=== PATIENT | male | born 1995 | race Asian ===

== ENCOUNTER 2017-02-21 02:50 | Emergency (ER) | payer BC ==
[2017-02-21 02:59] VITALS: TEMP 36.3; O2SAT 100; Ht 175.3 cm
[2017-02-21 03:55] LABS: BLOOD UREA NITROGEN 13 mg/dl (7-18); BUN/CREATININE RATIO 16.4 (10-20); CARBON DIOXIDE 23 mmol/L (21-32); CHLORIDE 106 mmol/L (98-107); CREATININE 0.82 mg/dl (0.60-1.40); GLUCOSE 121 mg/dl (70-99); POTASSIUM 3.9 mmol/L (3.5-5.1); SODIUM 140 mmol/L (136-145)
[2017-02-21 04:44] VITALS: BP 126/64; PULSE 91; O2SAT 100
--- NOTE | 2017-02-22 03:02 | EMERGENCY ROOM VISIT NOTE ---
ED Visit Note First contact with patient: 02:52 CHIEF COMPLAINT: Altered mental status from Alcohol overdose HISTORY OF PRESENT ILLNESS: This 21 year old male patient presents to the emergency department via ambulance for evaluation of altered mental status, presumably from alcohol intoxication. The patient was evidently drinking alcohol this evening, and when he got out of a taxi, he fell, which was witnessed by police. The patient admits to drinking alcohol tonight. He denies drug use or other injury. He rates his current discomfort a 0/10. He does not have other complaints. REVIEW OF SYSTEMS: Review of systems was somewhat limited secondary to patient' s presumed alcohol intoxication status. Review of systems was performed to the best of our ability and reperformed as the patient began to sober up. All other systems were reviewed and are negative. ALLERGIES: See EMR MEDICATIONS: See EMR PMH: No chronic medical disease SOCIAL HISTORY: Drinks alcohol PHYSICAL EXAM VITALS: Vitals are noted on the nurse's note and reviewed by myself. Vital signs stable. GENERAL: Male, who is in no acute distress and resting comfortably. Patient is visibly altered and smells of alcohol. HEAD: Normocephalic atraumatic. EARS: External ear normal. External auditory canals clear, tympanic membranes pearly vargas without erythema or effusion bilaterally. EYES: Pupils equal round and reactive to light and accommodation. Conjunctivae without injection, sclerae without icterus. Extraocular movements intact. NOSE: Patent, turbinates without inflammation or discharge. MOUTH: Mucous membranes moist. Tonsils are not enlarged. Pharynx without erythema, blood, vomitus, or exudate. Uvula midline. Airway patent. NECK: Supple without nuchal rigidity. No lymphadenopathy. Cervical spine is nontender. HEART: Regular rate and rhythm without murmurs gallops or rubs. LUNGS: Clear to auscultation bilaterally without wheezes, rales or rhonchi. No retractions or accessory muscle use. ABDOMEN: Positive normal bowel sounds x 4. Soft, nontender, without masses or organomegaly. No guarding or rebound tenderness. MUSCULOSKELETAL: No muscle atrophy, erythema, or edema noted. Gross motor function intact to all extremities. NEURO: Patient was alert to person but not place or time. They appear with altered mental status. SKIN: The skin was without rashes, erythema, edema, or bruising. No Tenting of the skin. EMERGENCY DEPARTMENT COURSE: Physical exam and history was performed. Nursing notes and EMR were reviewed. The patient appears to be altered on my examination. I suspect this is from an alcohol overdose. Conservative care measures and aspiration precautions were instituted. The patient was placed on court monitor and watched during the patient's stay. The patient was placed in a prone position. Blood work was obtained and was reviewed. The patient's blood alcohol level was 148. This appears to be the primary cause of the altered status. Patient was reevaluated multiple times throughout the course of their emergency department stay. Over time the patient did sober up and was able to talk, walk , and drink fluids without difficulty. The patient was felt stable for discharge home. The patient was given alcohol intoxication handouts. The patient was discharged home in stable condition with a sober ride. Differential diagnosis: Etiologies such as alcohol intoxication, metabolic, infection, hypoglycemia, electrolyte abnormalities, cardiac sources, intracerebral event, toxicologic, neurologic, as well as others were entertained. DIAGNOSIS: Acute alcohol intoxication Current/Historical Medications No Active Prescriptions or Reported Meds Allergies Coded Allergies: Lactose (Verified Adverse Reaction, Intermediate, GI UPSET, 02/21/17) Vital Signs Date Time Temp Pulse Resp B/P (MAP) Pulse Ox O2 Delivery O2 Flow Rate FiO2 02/21/17 04:44 91 16 126/64 100 Room Air 02/21/17 04:00 81 20 114/62 98 02/21/17 03:30 81 16 121/67 96 Room Air 02/21/17 03:20 76 02/21/17 02:59 36.3 90 18 122/73 100 Room Air 02/21/17 02:59 100 Room Air Laboratory Results 02/21/17 03:07 Test 02/21/17 03:07 Anion Gap 11.0 mmol/L (3-11) Estimated GFR () 146.5 Estimated GFR (Non- 126.4 BUN/Creatinine Ratio 16.4 (10-20) Calcium Level 9.0 mg/dl (8.5-10.1) Ethyl Alcohol mg/dL 148.0 mg/dl (0-3) Departure Information Impression Primary Impression: Alcohol use with intoxication Dispostion Home / Self-Care Condition GOOD Prescriptions No Active Prescriptions or Reported Meds Referrals No Doctor, Assigned (PCP) Forms HOME CARE DOCUMENTATION FORM, IMPORTANT VISIT INFORMATION Patient Instructions My [facility]: [employer] and Alcohol Related Visits Additional Instructions You were seen and evaluated today on an emergency basis only. This is not a substitute for, or an effort to provide, complete comprehensive medical care. It is not possible to recognize and treat all injuries or illnesses in a single emergency department visit. Keep well-hydrated. Small sips of water over a long period of time are better tolerated than large amounts at once. Tylenol 1000 mg every 6 hours as needed for pain (Maximum 3000 mg Tylenol in 24 hr period). Follow up with family doctor as needed. You are welcome to return to the emergency department anytime with new, worsening, or concerning symptoms.
== END 2017-02-21 04:55 | disposition home or self-care (01) ==
LOC: EDBD 02:50 → C.EDA 02:52
DX: F10.129 Alcohol abuse with intoxication, unspecified (principal); Y90.6 Blood alcohol level of 120-199 mg/100 ml